=== PATIENT | male | born 1935 | race Caucasian/White ===

== ENCOUNTER 2019-05-01 14:54 | Observation (INO) ==
[2019-05-01] MEDS ORDERED: 0.9 % Sodium Chloride 1,000 ML IVC ONE (15:01)
[2019-05-01 15:32] LABS: Basophils % 0.3 %; Eosinophils # 0.4 K/mcL (0.0-0.6); Eosinophils % 3.1 %; Hematocrit 43.2 % (37.5-50.1); Hemoglobin 14.4 g/dL (12.9-16.9); Immature Granulocytes % 0.5 % (0-4); Lymphocytes # 2.7 K/mcL (0.6-4.6); Lymphocytes % 22.6 %; Mean Corpuscular HGB Conc 33.3 g/dL (31.6-35.5); Mean Platelet Volume 9.3 fL (9.4-12.4); Monocytes # 1.1 K/mcL (0.0-1.3); Monocytes % 9.5 %; Neutrophils # 7.6 K/mcL (1.6-8.9); Platelet Count 350 K/mcL (140-400); Red Cell Distribution Width 12.9 % (11.5-14.5); White Blood Count 11.9 K/mcL (4.3-11.1)
[2019-05-01 15:47] LABS: Albumin 3.4 g/dL (3.5-5.7); Albumin/Globulin Ratio 1.2 (1.1-2.2); Bilirubin,Direct 0.2 mg/dL (0.0-0.2); Bilirubin,Indirect 0.5 mg/dL (0.0-1.0); Bilirubin,Total 0.7 mg/dL (0.3-1.0); Calcium 9.3 mg/dL (8.6-10.3); Globulin 2.8 g/dL (2.4-3.5); Potassium 3.3 mEq/L (3.5-5.1); Total Protein 6.2 g/dL (6.4-8.9)
[2019-05-01] MEDS: 0.9 % Sodium Chloride 1,000 ML IVC SCH ×4 (16:24→21:58)
[2019-05-01] MEDS ORDERED: Ondansetron 4 MG/2 ML VIAL IVP PRN (16:44)
[2019-05-01] MEDS ORDERED: Naloxone 0.4 MG/ML INJ IVP PRN (16:44)
[2019-05-01] MEDS ORDERED: Acetaminophen 325 MG TABLET PO PRN (16:44)
[2019-05-01] MEDS ORDERED: MOM Conc 10 ML UD.LIQ PO ONE (16:48)
[2019-05-01] MEDS ORDERED: cefTRIAXone 1,000 MG in 0.9 % Sodium Chloride Mini Bag 100 ML IVPB ONE (16:58)
[2019-05-01] MEDS: *HR* Heparin 5,000 UNIT/ML VIAL SQ SCH (19:08)
[2019-05-01] MEDS: Sennosides/Docusate Sodium TABLET PO SCH (20:44)
[2019-05-01] MEDS: Lactulose Oral Soln 20 GM/30 ML UDC PO SCH (20:45)
[2019-05-02 01:37] LABS: Bilirubin,Urine Negative (Negative); Blood,Urine Moderate (Negative); Clarity,Urine Turbid (Clear); Glucose,Urine (UA) Normal (Normal); Ketones,Urine Negative (Negative); Leukocyte Esterase,Urine Large (Negative); Nitrite,Urine Negative (Negative); Protein,Urine >=300 mg/dL (Neg-Trace); Urobilinogen,Urine Normal (Normal)
[2019-05-02] MEDS: Ipratropium/Albuterol Neb 3 ML IH PRN (01:40)
[2019-05-02 01:59] LABS: Color,Urine Yellow (Yellow)
[2019-05-02 02:06] LABS: Bacteria,Urine Many per hpf (None-Few)
[2019-05-02] MEDS: *HR* Heparin 5,000 UNIT/ML VIAL SQ SCH ×2 (05:54→18:14)
[2019-05-02] MEDS: 0.9 % Sodium Chloride 1,000 ML IVC SCH ×2 (06:23→21:12)
[2019-05-02 06:43] LABS: Basophils % 0.5 %; Eosinophils # 0.3 K/mcL (0.0-0.6); Eosinophils % 3.7 %; Hematocrit 41.2 % (37.5-50.1); Hemoglobin 13.6 g/dL (12.9-16.9); Immature Granulocytes % 0.4 % (0-4); Lymphocytes # 2.1 K/mcL (0.6-4.6); Lymphocytes % 24.8 %; Mean Corpuscular Hemoglobin 30.3 pg (28.0-33.3); Mean Corpuscular Volume 91.8 fL (83.0-100.0); Mean Platelet Volume 9.9 fL (9.4-12.4); Monocytes # 0.9 K/mcL (0.0-1.3); Monocytes % 10.3 %; Neutrophils # 5.1 K/mcL (1.6-8.9); Platelet Count 292 K/mcL (140-400); Red Blood Count 4.49 M/mcL (4.19-5.50); Red Cell Distribution Width 13.2 % (11.5-14.5); Segmented Neutrophils % 60.3 %; White Blood Count 8.4 K/mcL (4.3-11.1)
[2019-05-02 07:04] LABS: Calcium 8.6 mg/dL (8.6-10.3); Potassium 3.5 mEq/L (3.5-5.1)
[2019-05-02] MEDS ORDERED: cefTRIAXone 1,000 MG in 0.9 % Sodium Chloride Mini Bag 100 ML IVPB ONE (08:13)
[2019-05-02] MEDS: Lactulose Oral Soln 20 GM/30 ML UDC PO SCH ×2 (09:41→21:09)
[2019-05-02] MEDS: Sennosides/Docusate Sodium TABLET PO SCH ×2 (09:41→21:08)
[2019-05-02] MEDS: Bisacodyl 10 MG RECTAL SUPPOSITORY RC SCH (09:41)
[2019-05-03] MEDS: 0.9 % Sodium Chloride 1,000 ML IVC SCH ×2 (02:14→10:42)
[2019-05-03] MEDS: *HR* Heparin 5,000 UNIT/ML VIAL SQ SCH (05:37)
[2019-05-03] MEDS ORDERED: cefTRIAXone 1,000 MG in 0.9 % Sodium Chloride Mini Bag 100 ML IVPB SCH (09:00)
[2019-05-03] MEDS: Sennosides/Docusate Sodium TABLET PO SCH (10:46)
[2019-05-03] MEDS: Bisacodyl 10 MG RECTAL SUPPOSITORY RC SCH (10:47)
[2019-05-03] MEDS: Lactulose Oral Soln 20 GM/30 ML UDC PO SCH (10:47)
[2019-05-03] MEDS: Ipratropium/Albuterol Neb 3 ML IH PRN (11:18)
[2019-05-03 11:19] VITALS: BP 122/72
== END 2019-05-03 15:01 | disposition home or self-care (01) ==
LOC: INPPIK 14:54 → EMEROOPIK 14:54 → INPPIK 17:56
PROVIDERS: ADMIT Family Medicine; ATTEND Family Medicine

== ENCOUNTER 2019-08-21 13:38 | Observation (INO) ==
[2019-08-21] MEDS ORDERED: Azithromycin 500 MG in 0.9 % Sodium Chloride 250 ML IVPB ONE (13:41)
[2019-08-21] MEDS ORDERED: cefTRIAXone 2,000 MG in Water for inj. (sterile) 10 ML IVP ONE (13:41)
[2019-08-21] MEDS ORDERED: Ipratropium/Albuterol Neb 3 ML IH ONE (13:41)
[2019-08-21] MEDS ORDERED: methylPREDNISolone 125 MG/2 ML VIAL IVP ONE (13:41)
[2019-08-21] MEDS ORDERED: 0.9 % Sodium Chloride 500 ML IVC ONE (13:42)
[2019-08-21] MEDS ORDERED: 0.9 % Sodium Chloride 1,000 ML IVC SCH ×2 (13:45→17:00)
[2019-08-21 14:04] LABS: Basophils # 0.1 K/mcL (0.0-0.2); Basophils % 0.7 %; Eosinophils # 1.1 K/mcL (0.0-0.6); Eosinophils % 10.3 %; Hematocrit 50.2 % (37.5-50.1); Hemoglobin 16.7 g/dL (12.9-16.9); Immature Granulocytes % 0.4 % (0-4); Lymphocytes # 2.1 K/mcL (0.6-4.6); Lymphocytes % 20.1 %; Mean Corpuscular HGB Conc 33.3 g/dL (31.6-35.5); Mean Corpuscular Hemoglobin 30.5 pg (28.0-33.3); Mean Corpuscular Volume 91.6 fL (83.0-100.0); Mean Platelet Volume 9.4 fL (9.4-12.4); Monocytes # 1.1 K/mcL (0.0-1.3); Monocytes % 10.5 %; Platelet Count 337 K/mcL (140-400); Red Blood Count 5.48 M/mcL (4.19-5.50); Red Cell Distribution Width 13.9 % (11.5-14.5); White Blood Count 10.3 K/mcL (4.3-11.1)
[2019-08-21 14:17] LABS: INR 1.1; Prothrombin Time 12.4 Seconds (9.4-12.1)
[2019-08-21 14:25] LABS: Troponin I 0.03 ng/mL (< 0.04)
[2019-08-21 14:26] LABS: Alanine Aminotransferase 13 Units/L (7-52); Albumin 4.4 g/dL (3.5-5.7); Albumin/Globulin Ratio 1.7 (1.1-2.2); Alkaline Phosphatase 65 Units/L (34-104); Aspartate Amino Transferase 20 Units/L (13-39); BUN/Creatinine Ratio 25 (6-26); Bilirubin,Direct 0.2 mg/dL (0.0-0.2); Bilirubin,Indirect 0.9 mg/dL (0.0-1.0); Bilirubin,Total 1.1 mg/dL (0.3-1.0); Blood Urea Nitrogen 27 mg/dL (8-23); Calcium 10.5 mg/dL (8.6-10.3); Carbon Dioxide 31 mEq/L (23-29); Chloride 98 mEq/L (98-107); Globulin 2.6 g/dL (2.4-3.5); Glucose 119 mg/dL (70-105); Osmolality,Calculated 298 (280-300); Potassium 4.1 mEq/L (3.5-5.1); Sodium 141 mEq/L (136-145); eGFR For African Americans > 60 (> 60); eGFR For Non-African Americans > 60 (> 60)
[2019-08-21] MEDS ORDERED: MOM Conc 10 ML UD.LIQ PO PRN (15:41)
[2019-08-21] MEDS ORDERED: Mag Hydrox/Al Hydrox/Simeth 30 ML UDC PO PRN (15:41)
[2019-08-21] MEDS ORDERED: Ondansetron 4 MG/2 ML VIAL IVP PRN (15:41)
[2019-08-21] MEDS ORDERED: Naloxone 0.4 MG/ML INJ IVP PRN (15:41)
[2019-08-21] MEDS ORDERED: Ipratropium/Albuterol Neb 3 ML IH SCH (16:00)
[2019-08-21] MEDS: MethylPREDNISolone 40 MG/ML VIAL IVP SCH ×3 (16:12→16:18)
[2019-08-21] MEDS: Ipratropium/Albuterol Neb 3 ML IH SCH (20:49)
[2019-08-21] MEDS: *HR* Heparin 5,000 UNIT/ML VIAL SQ SCH (22:59)
[2019-08-22] MEDS: MethylPREDNISolone 40 MG/ML VIAL IVP SCH ×3 (00:09→13:12)
[2019-08-22] MEDS: Ipratropium/Albuterol Neb 3 ML IH SCH ×5 (00:23→16:55)
[2019-08-22] MEDS: *HR* Heparin 5,000 UNIT/ML VIAL SQ SCH ×2 (05:36→13:57)
[2019-08-22 06:48] LABS: Basophils % 0.2 %; Hematocrit 44.7 % (37.5-50.1); Hemoglobin 14.8 g/dL (12.9-16.9); Immature Granulocytes % 0.3 % (0-4); Lymphocytes % 16.4 %; Mean Corpuscular HGB Conc 33.1 g/dL (31.6-35.5); Mean Corpuscular Hemoglobin 30.3 pg (28.0-33.3); Mean Corpuscular Volume 91.6 fL (83.0-100.0); Mean Platelet Volume 9.4 fL (9.4-12.4); Monocytes # 0.1 K/mcL (0.0-1.3); Monocytes % 2.1 %; Neutrophils # 4.7 K/mcL (1.6-8.9); Platelet Count 270 K/mcL (140-400); Red Blood Count 4.88 M/mcL (4.19-5.50); Red Cell Distribution Width 13.5 % (11.5-14.5); White Blood Count 5.8 K/mcL (4.3-11.1)
[2019-08-22 07:07] LABS: BUN/Creatinine Ratio 30 (6-26); Blood Urea Nitrogen 31 mg/dL (8-23); Calcium 9.6 mg/dL (8.6-10.3); Carbon Dioxide 30 mEq/L (23-29); Chloride 101 mEq/L (98-107); Glucose 174 mg/dL (70-105); Osmolality,Calculated 307 (280-300); Potassium 3.8 mEq/L (3.5-5.1); Sodium 143 mEq/L (136-145); eGFR For African Americans > 60 (> 60); eGFR For Non-African Americans > 60 (> 60)
[2019-08-22] MEDS ORDERED: Loratadine 10 MG TABLET PO SCH (09:00)
[2019-08-22] MEDS ORDERED: hydroCHLOROthiazide 25 MG TABLET PO SCH (09:00)
[2019-08-22] MEDS ORDERED: levoFLOXacin 750 MG/150 ML 750 MG/150 ML BAG IVPB SCH (09:00)
[2019-08-22] MEDS ORDERED: lisinopriL 10 MG TABLET PO SCH (09:00)
[2019-08-22] MEDS ORDERED: Perflutren Lipid Microsphere 1.3 ML in 0.9 % Sodium Chloride 8.7 ML IVP ONE (09:11)
[2019-08-22 11:21] VITALS: BP 109/81
== END 2019-08-22 18:05 | disposition home or self-care (01) ==
LOC: INPPIK 13:38 → EMEROOPIK 13:38 → INPPIK 15:11
PROVIDERS: ADMIT Family Medicine; ATTEND Family Medicine